=== PATIENT | female | born 1940 | race Caucasian/White ===

== ENCOUNTER 2018-12-07 18:18 | Emergency (ER) | payer MEDICARE ==
[2018-12-07] MEDS ORDERED: Ketorolac 30 MG/ML SDV IM ONE (18:38)
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
--- NOTE | 2018-12-08 06:55 | CR ---
Right shoulder: Three views of the right shoulder were obtained. Comparison: No previous study. Nondisplaced fracture is seen within the shaft of the clavicle. Glenohumeral joint and acromioclavicular joint are unremarkable. No additional fracture or other bony abnormality is seen. Impression: 1. Nondisplaced right clavicle fracture. Diagnostic code #3
== END 2018-12-07 20:00 | disposition home or self-care (01) ==
LOC: JD.ED 18:18
DX: S42.024A Nondisplaced fracture of shaft of right clavicle, initial encounter for closed fracture (principal); Z88.8 Allergy status to other drugs, medicaments and biological substances; Z79.899 Other long term (current) drug therapy; V29.49XA Motorcycle driver injured in collision with other motor vehicles in traffic accident, initial encounter; Z79.82 Long term (current) use of aspirin
CPT/HCPCS: 73030; 96372; 99284; J1885